=== PATIENT | male | born 1970 | race Caucasian/White ===

== ENCOUNTER 2019-01-30 15:41 | Emergency (ER) | payer BC ==
[~2019-01-30] VITALS: Ht 177.8 cm; Wt 93.0 kg
--- NOTE | 2019-01-30 15:41 | NUR ---
BIB , pt was brought from a car via w/c and brought directly to room 2a. Pt is awake, alert and oriented. Per report pt took Triazolam 0.25mg x 9 tablets at 1400 today and had an episode of emesis approx 5 mins after taking the tablets. Pt denies any suicidal ideation. states pt was suppose to have a dental procedure today and took the tabs due to anxiety r/t procedure.
--- NOTE | 2019-01-30 16:05 | NUR ---
Called poison control as requested by , recommendation: Monitor patient for 1-2 hrs and may be d/c home if stable. notified.
--- NOTE | 2019-01-30 17:10 | NUR ---
Pt is sleeping with NAD noted.
--- NOTE | 2019-01-30 17:50 | NUR ---
at bedside for reassessment.
--- NOTE | 2019-01-30 18:47 | NUR ---
IV removed. Catheter intact and site benign. Pressure and 4x4 gauze applied to site. No bleeding noted.
--- NOTE | 2019-01-30 18:47 | NUR ---
Patient discharged to home in stable conditon with . Written and verbal after care instructions given. Patient and verbalized understanding of instructions. Pt awake, a/ox4 and ambulates with steady gait.
== END 2019-01-30 18:48 | disposition home or self-care (01) ==
LOC: ER 15:41
DX: T42.4X1A Poisoning by benzodiazepines, accidental (unintentional), initial encounter (principal); Y92.89 Other specified places as the place of occurrence of the external cause
CPT/HCPCS: A4663